=== PATIENT | male | born 1950 | race Caucasian/White ===

== ENCOUNTER 2022-07-15 | Inpatient (IN) | payer OTHER, MEDICARE ==
[~2022-07-15] VITALS: Ht 172.7 cm; Wt 78.0 kg
[2022-07-15] VITALS (22 sets, daily range): BP systolic 119–142; BP diastolic 66–96
[2022-07-15 01:44] LABS: BASOPHILS # (AUTO) 0.1 X10'3 (0-0.2); EOSINOPHILS # (AUTO) 0.2 X10'3 (0-0.9); MEAN CORPUSCULAR VOLUME 95.8 FL (78-98); MEAN PLATELET VOLUME 7.8 FL (7.4-10.4)
[2022-07-15 01:48] LABS: BASOPHILS % (AUTO) 0.9 % (0-1); EOSINOPHILS % (AUTO) 3.5 % (0-6); HEMATOCRIT 46.7 % (42.0-52.0); HEMOGLOBIN 16.3 g/dl (14.0-17.9); LYMPHOCYTES # (AUTO) 1.4 X10'3 (1.1-4.8); LYMPHOCYTES % (AUTO) 21.6 % (21-51); MEAN CORPUSCULAR HEMOGLOBIN 33.6 PG (27.0-31.0); MONOCYTES # (AUTO) 0.4 X10'3 (0-0.9); MONOCYTES % (AUTO) 6.4 % (2-12); NEUTROPHILS # (AUTO) 4.3 X10'3 (1.8-7.7); NEUTROPHILS % (AUTO) 67.6 % (42-75); PLATELET COUNT 188 X10'3 (140-440); RED BLOOD COUNT 4.87 X10'6 (4.70-6.10); RED CELL DISTRIBUTION WIDTH 12.7 % (11.5-14.5); WHITE BLOOD COUNT 6.4 X10'3 (4.5-11.0)
[2022-07-15 01:57] LABS: ALANINE AMINOTRANSFERASE 22 U/L (12-78); ALBUMIN 3.7 G/DL (3.4-5.0); ALBUMIN/GLOBULIN RATIO 1.1 (1.1-1.5); ALKALINE PHOSPHATASE 54 IU/L (46-116); ANION GAP 12 (8-16); ASPARTATE AMINO TRANSFERASE 19 U/L (10-37); BILIRUBIN,TOTAL 0.4 MG/DL (0.1-1.0); BLOOD UREA NITROGEN 17 MG/DL (7-18); BUN/CREATININE RATIO 16.2 (5.4-32.0); CALCIUM 9.3 MG/DL (8.5-10.1); CHLORIDE 104 MMOL/L (99-107); CREATININE 1.05 MG/DL (0.60-1.10); GLUCOSE 130 MG/DL (70-104); LIPASE 148 U/L (73-393); POTASSIUM 3.9 MMOL/L (3.5-5.1); SODIUM 142 MMOL/L (135-145); TOTAL CARBON DIOXIDE 25.8 MMOL/L (24-32); eGFR 69 ML/MIN
[2022-07-15 02:13] LABS: CLARITY,URINE SLIGHTLY CLOUDY (Clear); COLOR,URINE YELLOW (Yellow); GLUCOSE, URINE NEGATIVE (Neg); KETONES,URINE NEGATIVE (Neg); LEUKOCYTE ESTERASE ,URINE NEGATIVE (Neg); NITRITES, URINE NEGATIVE (Neg); OCCULT BLOOD,URINE TRACE-INTACT (Neg); PROTEIN,URINE NEGATIVE (Neg); UROBILINOGEN,URINE 0.2 E.U/dL (0.2-1.0)
[2022-07-15] MEDS ORDERED: fentaNYL/PF 50MCG/1 ML 2ML syringe IV ONE ×2 (02:15→04:00)
[2022-07-15] MEDS ORDERED: ketorolac trometh. 30mg/ml inj. IV ONE (02:15)
[2022-07-15] MEDS ORDERED: ondansetron/PF 4mg/2ml inj IV ONE ×2 (02:15→05:40)
[2022-07-15 02:18] LABS: BACTERIA,URINE FEW /HPF (Neg); SQUAMOUS EPITHELIAL CELL,UR FEW /LPF (FEW); UA COLLECTION TYPE VOIDED; WBC,URINE NONE SEEN /HPF (0-4)
--- NOTE | 2022-07-15 02:35 | NUR ---
ivp x3 given by rn
--- NOTE | 2022-07-15 04:32 | NUR ---
pain med given by rn
[2022-07-15] MEDS ORDERED: HYDR-3965 PO (05:27)
[2022-07-15] MEDS ORDERED: ONDA8TAB13 PO (05:27)
[2022-07-15] MEDS ORDERED: HYDROcodone/acetaminophen 5mg/325mg tablet PO ONE (05:40)
[2022-07-15] MEDS ORDERED: morphine 4 MG/ML inj SYRINge IV ONE (05:40)
--- NOTE | 2022-07-15 06:13 | NUR ---
po med given ivp given by rn
[2022-07-15] MEDS ORDERED: CefTRIAXone 2gm/D5W 50ml BAG 50 ML IV ONE (06:45)
[2022-07-15] MEDS ORDERED: normal saline 1000ML IV soln IVB ONE (06:45)
[2022-07-15] MEDS ORDERED: potassium Cl 20 mEq SR tablet PO PRN ×2 (07:15)
[2022-07-15] MEDS ORDERED: magnesium hydroxide 30ml (MOM) UD suspension PO PRN (07:15)
[2022-07-15] MEDS ORDERED: HYDROmorphone/PF 0.2 MG/ML SYRINGE IV PRN ×3 (07:15→14:50)
[2022-07-15] MEDS ORDERED: ondansetron 4mg rapidly disintigrating tab PO PRN (07:15)
[2022-07-15] MEDS ORDERED: ondansetron/PF 4mg/2ml inj IV PRN ×3 (07:15→14:50)
[2022-07-15] MEDS ORDERED: bisacodyl 10mg suppository rectal RC PRN (07:15)
[2022-07-15] MEDS ORDERED: potassium Cl 40MEQ/1/2NS 520ml 520 ML IV PRN (07:15)
[2022-07-15] MEDS ORDERED: mag hydrox/Alum hydrox/simeth 30ml oral suspension PO PRN (07:15)
[2022-07-15] MEDS ORDERED: magnesium Cl slow-release 64mg tablet PO PRN (07:15)
[2022-07-15] MEDS ORDERED: acetaminophen 325mg tablet PO PRN ×2 (07:15)
[2022-07-15] MEDS ORDERED: HYDROmorphone inj. 0.5 MG/0.5 ML DISP.SYRIN IV PRN (07:15)
[2022-07-15] MEDS ORDERED: magnesium 4gm in 100ml NS 100 ML IV PRN (07:15)
[2022-07-15] MEDS ORDERED: acetaminophen 650mg rectal suppository RC PRN (07:15)
--- NOTE | 2022-07-15 07:31 | NUR ---
report from randy calvert for continuation of care. pt is awake ao4. pt states pain has improved from 9 to 5/10. resp even unlabored. skinw/d/i pink. pt stated he drank 8 ounces of water with oral pain medication at 0600. pt verbalized understanding of npo status
[2022-07-15] MEDS: docusate sod 100mg capsule PO SCH ×2 (08:00→22:47)
[2022-07-15] MEDS: K and/or MAG REPLACEMENT MC SCH ×2 (08:00→20:00)
[2022-07-15 08:31] LABS: POTASSIUM 4.1 MMOL/L (3.5-5.1)
[2022-07-15] MEDS: morphine 4 MG/ML inj SYRINge IV PRN ×2 (09:43→12:17)
[2022-07-15] MEDS ORDERED: BUPIVAcaine 0.5% inj/PF 30 ML ONE (14:31)
[2022-07-15] MEDS ORDERED: ringers solution, lacted 1,000 ML IV SCH (14:50)
[2022-07-15] MEDS ORDERED: labetalol 20mg/4ml (5mg/ml) syringe IV PRN (14:50)
[2022-07-15] MEDS ORDERED: acetaminophen 1,000mg/100ml IV 100 ML IV PRN (14:50)
[2022-07-15] MEDS ORDERED: meperidine/PF 25mg/ml syringe IV PRN ×3 (14:50)
[2022-07-15] MEDS ORDERED: proCHLORperazine 10 MG/2 ml inj IV PRN (14:50)
[2022-07-15] MEDS ORDERED: hydrALAZINE 20mg/ml inj. IV PRN (14:50)
[2022-07-15] MEDS ORDERED: sevoflurane 250ml liquid IH ONE (15:12)
[2022-07-15] MEDS ORDERED: DOXA2TAB46 PO (15:17)
[2022-07-15] MEDS ORDERED: ZOLP10TA PO (15:17)
[2022-07-15] MEDS ORDERED: midazolam 1 mg/ML 2ml injection ONE (15:18)
[2022-07-15] MEDS ORDERED: fentaNYL /PF 50mcg/ml 5ml ampule ONE (15:19)
[2022-07-15] MEDS ORDERED: 0.9 % SODIUM CHLORIDE 10 ML VIAL ONE (15:50)
[2022-07-15] MEDS ORDERED: ePHEDrine 50MG/ML INJ. ONE (15:50)
[2022-07-15] MEDS ORDERED: dexamethasone sod phosphate 4mg/ml inj. ONE (15:50)
[2022-07-15] MEDS ORDERED: rocuronium 10mg/ml inj IV ONE (15:50)
[2022-07-15] MEDS ORDERED: ceFOXitin 1000 MG inj ONE ×2 (15:50)
[2022-07-15] MEDS ORDERED: LIDOcaine 2% (20mg/ml) 5ml vial ONE (15:50)
[2022-07-15] MEDS ORDERED: ondansetron/PF 4mg/2ml inj ONE (15:50)
[2022-07-15] MEDS ORDERED: propofol inj 20 ML IV ONE (15:50)
[2022-07-15] MEDS ORDERED: BUPIVAcaine 0.5% inj/PF 30 ml vial IJ ONE (15:55)
[2022-07-15] MEDS ORDERED: glycopyrrolate 0.2mg/ml inj ONE (16:29)
[2022-07-15] MEDS ORDERED: neostigmine methylsulfate 1 MG/ML 10ml vial ONE (16:29)
--- NOTE | 2022-07-15 16:41 | NUR ---
Received from OR via , accompanied by Anesthesiologist EDUARDO AND LESLIE THE OR NURSE. and report given by Anesthesiolgist. PT IS DROWSY YET ABLE TO FOLLOW VERBAL COMMANDS. DENIES PAIN OR DISCOMFORT. VSS WITH ST. 3 LAP SITES WITH BANDAIDS; CDI. Addendum: 07/15/22 at 1742 by Deena Marroquin RN Amended: Links added.
--- NOTE | 2022-07-15 18:45 | NUR ---
Patient in room [facility]. I have received report from KRISTIE Zavala and had the opportunity to ask questions and assume patient care.
--- NOTE | 2022-07-15 19:01 | NUR ---
Report called to receiving nurse. Transferred via BED WITH 2 BAGS OF Belongings PT WAS UP TO USE BATHROOM; WITH OUT RESULTS. IV TO RT AC INFUSING LR. PT EATING ICE CHIPS; SOOTHING SORE THROAT. DENIES PAIN OR DISCOMFORT. TRANSPORTED WITH TELE.. Special Issues communicated to receiving nurse. Addendum: 07/15/22 at 1916 by Deena Marroquin RN Amended: Links added.
[2022-07-15] MEDS ORDERED: temazepam 15mg capsule PO PRN (21:00)
--- NOTE | 2022-07-15 21:50 | NUR ---
Answered patient call light with patient c/o unable to urinate and having bladder pain. Patient attempted to stand and urinate with no success. Patient bladder scanned with 639 mls of urine found to be in the bladder. Patient with c/o increase in pain. Page to MD Chenu with request to straight cath the patient.
--- NOTE | 2022-07-15 22:40 | NUR ---
Attempt made to straight cath patient was unsuccessful as patient has enlarged prostate. Resistance was met when the catheter approached the prostate and would not advance. 2nd attempt was made with a coude but again was unsuccessful. Patient tolerated the straight cath attempts well. Call was placed and order was received if able to get a catheter in november leave. Pt was updated that we would be leaving the catheter in on the next attempt r/t it being difficult and some alfonso blood was visualized. Pt verbalized understanding and in agreement with plan for godoy catheter. 14french coude was used on the 3rd attempt with success. Patient tolerated well and stated he felt bladder relief once the catheter was placed. Primary care nurse updated on placement of catheter.
[2022-07-15] MEDS: doxazosin mesylate 2mg tablet PO SCH (22:46)
[2022-07-15] MEDS: zolpidem 5mg tablet PO PRN (22:50)
[2022-07-16] MEDS: normal saline 1000ml 1,000 ML IV SCH ×4 (00:08→13:26)
[2022-07-16 02:00] VITALS: BP 128/68
[2022-07-16 06:00] VITALS: BP 140/70
--- NOTE | 2022-07-16 06:25 | NUR ---
Problems reprioritized. Patient report given, questions answered & plan of care reviewed with KRISTIE Melo.
[2022-07-16 06:28] LABS: HEMOGLOBIN 13.4 g/dl (14.0-17.9); MEAN PLATELET VOLUME 8.4 FL (7.4-10.4); PLATELET COUNT 161 X10'3 (140-440); WHITE BLOOD COUNT 11.9 X10'3 (4.5-11.0)
[2022-07-16 06:32] LABS: BASOPHILS % (AUTO) 0.1 % (0-1); EOSINOPHILS % (AUTO) 0 % (0-6); HEMATOCRIT 38.4 % (42.0-52.0); LYMPHOCYTES # (AUTO) 0.6 X10'3 (1.1-4.8); LYMPHOCYTES % (AUTO) 4.7 % (21-51); MEAN CORPUSCULAR HEMOGLOBIN 33.5 PG (27.0-31.0); MEAN CORPUSCULAR HGB CONC 34.9 g/dL (33.0-36.5); MEAN CORPUSCULAR VOLUME 96.1 FL (78-98); MONOCYTES # (AUTO) 0.6 X10'3 (0-0.9); MONOCYTES % (AUTO) 5.3 % (2-12); NEUTROPHILS # (AUTO) 10.7 X10'3 (1.8-7.7); NEUTROPHILS % (AUTO) 89.9 % (42-75); RED BLOOD COUNT 3.99 X10'6 (4.70-6.10); RED CELL DISTRIBUTION WIDTH 12.3 % (11.5-14.5)
--- NOTE | 2022-07-16 07:16 | NUR ---
Patient in room [facility]. I have received report from Ayanna FLOWERS and had the opportunity to ask questions and assume patient care.
[2022-07-16 07:17] LABS: ALANINE AMINOTRANSFERASE 68 U/L (12-78); ALBUMIN 2.7 G/DL (3.4-5.0); ALKALINE PHOSPHATASE 38 IU/L (46-116); ANION GAP 8 (8-16); ASPARTATE AMINO TRANSFERASE 51 U/L (10-37); BILIRUBIN,TOTAL 0.7 MG/DL (0.1-1.0); BLOOD UREA NITROGEN 13 MG/DL (7-18); BUN/CREATININE RATIO 14.9 (5.4-32.0); CALCIUM 7.9 MG/DL (8.5-10.1); CHLORIDE 107 MMOL/L (99-107); CREATININE 0.87 MG/DL (0.60-1.10); GLUCOSE 134 MG/DL (70-104); MAGNESIUM 1.8 MG/DL (1.5-2.4); POTASSIUM 4.1 MMOL/L (3.5-5.1); SODIUM 139 MMOL/L (135-145); TOTAL CARBON DIOXIDE 24.2 MMOL/L (24-32); TOTAL PROTEIN 5.5 G/DL (6.4-8.2); eGFR 86 ML/MIN
[2022-07-16] MEDS: K and/or MAG REPLACEMENT MC SCH ×2 (08:00→20:00)
--- NOTE | 2022-07-16 08:24 | NUR ---
Per Dr Jose Elias allen to start patient on Regular diet, Continue home medications , Dr aware of patient H&H this am and that patient has dark blood in godoy. Ok to ROBERT Tele
[2022-07-16] MEDS: docusate sod 100mg capsule PO SCH ×2 (08:39→19:09)
[2022-07-16 10:00] VITALS: BP 133/70
[2022-07-16] MEDS ORDERED: tranexamic acid inj. 1,000 MG in normal saline 100ml IV soln 90 ML IV ONE (12:50)
[2022-07-16] MEDS: HYDROcodone/acetaminophen 5mg/325mg tablet PO PRN ×2 (14:24→19:09)
[2022-07-16] MEDS: oxybutynin 5mg tablet PO SCH ×2 (14:24→21:35)
[2022-07-16 18:00] VITALS: BP 129/68
--- NOTE | 2022-07-16 18:10 | NUR ---
Patient in room [facility]. I have received report from KRISTIE Melo and had the opportunity to ask questions and assume patient care.
--- NOTE | 2022-07-16 18:43 | NUR ---
Problems reprioritized. Patient report given, questions answered & plan of care reviewed with Ayanna FLOWERS.
[2022-07-16] MEDS: zolpidem 5mg tablet PO PRN (21:35)
[2022-07-16] MEDS: doxazosin mesylate 2mg tablet PO SCH (21:35)
[2022-07-16 22:00] VITALS: BP 127/79
[2022-07-17] MEDS: normal saline 1000ml 1,000 ML IV SCH ×2 (05:32→09:50)
[2022-07-17 06:00] VITALS: BP 104/59
--- NOTE | 2022-07-17 06:15 | NUR ---
Problems reprioritized. Patient report given, questions answered & plan of care reviewed with KRISTIE Melo.
[2022-07-17 06:42] LABS: BASOPHILS % (AUTO) 0.6 % (0-1); EOSINOPHILS # (AUTO) 0.1 X10'3 (0-0.9); EOSINOPHILS % (AUTO) 1.4 % (0-6); HEMATOCRIT 34.3 % (42.0-52.0); HEMOGLOBIN 12.1 g/dl (14.0-17.9); LYMPHOCYTES # (AUTO) 1.4 X10'3 (1.1-4.8); LYMPHOCYTES % (AUTO) 17.5 % (21-51); MEAN CORPUSCULAR HEMOGLOBIN 34.2 PG (27.0-31.0); MEAN CORPUSCULAR HGB CONC 35.2 g/dL (33.0-36.5); MEAN CORPUSCULAR VOLUME 97.1 FL (78-98); MEAN PLATELET VOLUME 8.3 FL (7.4-10.4); MONOCYTES # (AUTO) 0.6 X10'3 (0-0.9); MONOCYTES % (AUTO) 7.1 % (2-12); NEUTROPHILS # (AUTO) 5.9 X10'3 (1.8-7.7); NEUTROPHILS % (AUTO) 73.4 % (42-75); PLATELET COUNT 128 X10'3 (140-440); RED BLOOD COUNT 3.53 X10'6 (4.70-6.10); RED CELL DISTRIBUTION WIDTH 12.8 % (11.5-14.5)
[2022-07-17 07:06] LABS: GLUCOSE 90 MG/DL (70-104)
[2022-07-17 07:07] LABS: ALANINE AMINOTRANSFERASE 71 U/L (12-78); ALBUMIN 2.3 G/DL (3.4-5.0); ALBUMIN/GLOBULIN RATIO 0.9 (1.1-1.5); ALKALINE PHOSPHATASE 33 IU/L (46-116); ANION GAP 7 (8-16); ASPARTATE AMINO TRANSFERASE 40 U/L (10-37); BILIRUBIN,TOTAL 0.5 MG/DL (0.1-1.0); BLOOD UREA NITROGEN 16 MG/DL (7-18); CALCIUM 7.4 MG/DL (8.5-10.1); CHLORIDE 109 MMOL/L (99-107); CREATININE 0.89 MG/DL (0.60-1.10); MAGNESIUM 1.7 MG/DL (1.5-2.4); POTASSIUM 3.7 MMOL/L (3.5-5.1); SODIUM 142 MMOL/L (135-145); TOTAL CARBON DIOXIDE 26.1 MMOL/L (24-32); eGFR 84 ML/MIN
--- NOTE | 2022-07-17 07:07 | NUR ---
Patient in room [facility]. I have received report from Ayanna FLOWERS and had the opportunity to ask questions and assume patient care.
[2022-07-17] MEDS: docusate sod 100mg capsule PO SCH (07:56)
[2022-07-17] MEDS: oxybutynin 5mg tablet PO SCH ×2 (07:56→13:33)
[2022-07-17] MEDS: HYDROcodone/acetaminophen 10/325mg tab PO PRN ×2 (07:59→13:38)
[2022-07-17] MEDS: K and/or MAG REPLACEMENT MC SCH (08:00)
[2022-07-17 08:12] LABS: CANCER ANTIGEN 125 7.7 U/mL (Not Estab.); CARBOHYDRATE ANTIGEN 19-9 <2 U/mL (0-35); CARCINOEMBRYONIC ANTIGEN 0.9 ng/mL (0.0-4.7)
[2022-07-17 10:00] VITALS: BP 95/48
--- NOTE | 2022-07-17 13:54 | NUR ---
Contacted Lee Ann w/ case management regarding Dr New wanting patient to have home health. Also, advised Dr New that Lee Ann had contacted [facility] who will [facility] and get patient in [facility] with [facility] otherwise she will make referrals to Urologist in the community.
[2022-07-17] MEDS ORDERED: OXYB5TAB16 PO (14:42)
[2022-07-17] MEDS ORDERED: SULF1TAB49 PO (14:42)
[2022-07-17] MEDS ORDERED: HYDR-3965 PO (14:42)
--- NOTE | 2022-07-17 15:40 | NUR ---
Patient discharge instructions reviewed with patient and patient verbalized understanding. Patients Taylor bag was changed to a leg bag and instructions and demonstration were given to patient. Patient verbalized understanding. Patients IV dc'd cannula intact. Patient will be getting set up with home care by case management and they have [facility] to [facility] to [facility] by [facility]ist.
== END 2022-07-17 15:40 | disposition home health service (06) | DRG 418 ==
LOC: ER 00:02 → ED HOLD 07:18 → SUR 3N 19:10
PROVIDERS: ADMIT Family Medicine; ATTEND Family Medicine
PROC: 0T9B70Z Drainage of Bladder with Drainage Device, Via Natural or Artificial Opening (ICD-10-PCS; 2022-07-15)
PROC: 0FT44ZZ Resection of Gallbladder, Percutaneous Endoscopic Approach (ICD-10-PCS; principal; 2022-07-15 15:12)
DX: K80.00 Calculus of gallbladder with acute cholecystitis without obstruction (principal); R71.0 Precipitous drop in hematocrit; K82.8 Other specified diseases of gallbladder; G89.29 Other chronic pain; Z20.822 Contact with and (suspected) exposure to COVID-19; M54.9 Dorsalgia, unspecified; N40.1 Benign prostatic hyperplasia with lower urinary tract symptoms; R31.0 Gross hematuria; R33.8 Other retention of urine; N13.9 Obstructive and reflux uropathy, unspecified; Z88.5 Allergy status to narcotic agent
CPT/HCPCS: 36415; 71045; 76700; 80053; 81001; 82378; 83690; 83735; 84132; 85025; 85610; 86301; 86304; 87081; 87635; 93005; 99285; A4215; A4340; A4358; A4615; A4618; A5200; A7000; G0378; J0131; J0694; J0696; J1100; J1885; J2250; J2270; J2405; J2704; J2710; J3010; J3490; J7030; J7120; S0020

== ENCOUNTER 2023-11-07 08:32 | Emergency (ER) | payer OTHER, MEDICARE ==
[~2023-11-07] VITALS: Ht 172.7 cm; Wt 77.3 kg
[~2023-11-07 08:32] MED LIST: DOXA2TAB46 PO; OXYB5TAB21 PO; ZOLP10TA PO
[2023-11-07] MEDS ORDERED: morphine IR (immed. release) 30mg tablet PO STA (09:18)
[2023-11-07] MEDS: ondansetron 4mg rapidly disintigrating tab PO ONE (09:49)
[2023-11-07] MEDS: morphine sulfate IR 15MG tablet PO STA (09:51)
[2023-11-07 11:46] VITALS: BP 121/74; PULSE 94; RESP 18; O2SAT 95
[2023-11-07] MEDS: morphine 4 MG/ML inj SYRINge IV ONE (11:47)
[2023-11-07] MEDS ORDERED: MORP15TA PO (12:50)
== END 2023-11-07 13:20 | disposition home or self-care (01) ==
LOC: ER 08:34
DX: S49.91XA Unspecified injury of right shoulder and upper arm, initial encounter (principal); M54.2 Cervicalgia; M54.6 Pain in thoracic spine; Z88.5 Allergy status to narcotic agent; W19.XXXA Unspecified fall, initial encounter; Y93.89 Activity, other specified; Y92.814 Boat as the place of occurrence of the external cause; Y99.0 Civilian activity done for income or pay
CPT/HCPCS: 70450; 72125; 72128; 73030; 73200; 96374; 99285; J2270; A4565

== ENCOUNTER 2024-12-29 11:06 | Emergency (ER) | payer OTHER, MEDICARE ==
[~2024-12-29] VITALS: Ht 172.7 cm; Wt 85.6 kg
[~2024-12-29 11:06] MED LIST changes: +ZOLP-679 PO; -ZOLP10TA PO
[2024-12-29 11:18] VITALS: TEMP 99
[2024-12-29] MEDS: dexamethasone sod phosphate 10mg/ml inj IV STA (11:31)
[2024-12-29] MEDS: HYDROmorphone 1 mg/ml syringe IM ONE (11:44)
[2024-12-29] MEDS: ketorolac trometh 15mg/ml vial 15 MG/ML ML IV ONE (13:18)
[2024-12-29] MEDS: ondansetron/PF 4mg/2ml inj IV ONE (13:49)
[2024-12-29 14:52] LABS: BASOPHILS # (AUTO) 0.1 X10'3 (0-0.2); BASOPHILS % (AUTO) 0.6 % (0-1); EOSINOPHILS % (AUTO) 0 % (0-6); HEMATOCRIT 44.5 % (42.0-52.0); HEMOGLOBIN 15.4 g/dl (14.0-17.9); LYMPHOCYTES # (AUTO) 0.5 X10'3 (1.1-4.8); LYMPHOCYTES % (AUTO) 5.8 % (21-51); MEAN CORPUSCULAR HEMOGLOBIN 33.5 PG (27.0-31.0); MEAN CORPUSCULAR HGB CONC 34.6 g/dL (33.0-36.5); MEAN CORPUSCULAR VOLUME 96.7 FL (78-98); MONOCYTES # (AUTO) 0.1 X10'3 (0-0.9); MONOCYTES % (AUTO) 1.3 % (2-12); NEUTROPHILS # (AUTO) 8.3 X10'3 (1.8-7.7); NEUTROPHILS % (AUTO) 92.3 % (42-75); PLATELET COUNT 172 X10'3 (140-440); RED CELL DISTRIBUTION WIDTH 12.7 % (11.5-14.5)
--- NOTE | 2024-12-29 15:04 | RADIOLOGY REPORT ---
Indication: back pain Technique: CT axial images of the abdomen and pelvis are obtained with intravenous contrast. Coronal and sagittal reformats were obtained. Radiation Dose Information: CTDI volume is 19 mGy. Dose-length product is 1035 mGy*cm Comparison: None FINDINGS: Tiny bilateral pleural effusions. Adrenal glands, spleen, pancreas unremarkable in shape. Liver demonstrates 9 mm right hepatic lobe h ypodensity, incompletely characterized on noncontrast examination. Cholecystectomy. Right kidney demonstrates no hydronephrosis, nephrolithiasis. The left kidney demonstrates nonobstructing calculi measuring up to 9 mm. Left renal peripelvic cysts . No hydronephrosis. Stomach is moderately distended. Small bowel loops are normal in caliber. Colonic diverticular disease. Moderate volume stool in the colon. There are no secondary signs for a ppendicitis. Abdominal aortic atherosclerotic disease. Mesenteric haziness / stranding. Bladder distended. Massive prostatomegaly with the prostate measuring 7.4 cm transversely. No free pelvic fluid. No ingu inal lymphadenopathy. Right iliac sclerotic lesion measuring 3.3 cm. Moderate thoracolumbar degenerative disc disease. IMPRESSION: 1. Nonobstructing left renal calculi up to 9 mm. 2. Cholecystectomy. 3. Massive prostatomegaly. Correlate with PSA levels and urology consultation. 4. Right iliac sclerotic lesion. Differential considerations include cementoplasty/Postsurgical gleason es, bone island, bone infarct, osteoblastic metastases. Correlate with clinical history and risk fac tors. 5. Mesenteric haziness/ stranding which can be seen with sclerosing mesenteritis / mesenteric pannicu litis. 6. Right hepatic lobe hypodense lesion measuring 9 mm. Recommend multiphasic MRI abdomen with 7. And without contrast to characterize, which can be done in the nonemergent setting. 8. Other findings as described.
[2024-12-29 15:08] LABS: ALANINE AMINOTRANSFERASE 22 U/L (12-78); ALBUMIN 3.3 G/DL (3.4-5.0); ALBUMIN/GLOBULIN RATIO 0.9 (1.1-1.5); ALKALINE PHOSPHATASE 71 IU/L (46-116); ANION GAP 12 (8-16); ASPARTATE AMINO TRANSFERASE 17 U/L (10-37); BILIRUBIN,TOTAL 0.7 MG/DL (0.1-1.0); BLOOD UREA NITROGEN 16 MG/DL (7-18); BUN/CREATININE RATIO 14.4 (10.0-20.0); CHLORIDE 101 MMOL/L (99-107); CREATININE 1.11 MG/DL (0.60-1.10); GLUCOSE 126 MG/DL (70-104); POTASSIUM 4.5 MMOL/L (3.5-5.1); SODIUM 140 MMOL/L (135-145); TOTAL CARBON DIOXIDE 27.3 MMOL/L (24-32); eCRCL 55 ML/MIN; eGFR 64 ML/MIN
--- NOTE | 2024-12-29 15:23 | RADIOLOGY REPORT ---
INDICATION: back pain COMPARISON: 12/29/24 TECHNIQUE: 5 views of the lumbar spine were obtained. FINDINGS: The lumbar vertebral alignment is normal. Mild multilevel degenerative disc disease of the lumbosacral spine. No significant facet arthropathy is noted. Calcific density measures 10 mm which projects over the expected region of the left kidney. No acute fracture, vertebral compression deformity or aggressive osseous lesions. The paravertebral soft tissues are grossly unremarkable. IMPRESSION: No acute fracture. Left renal stone measuring 10 mm as seen on CT.
--- NOTE | 2024-12-29 17:53 | Physician Documentation ---
History of Present Illness ~ Chief Complaint: Back Pain Stated Complaint: BACK PAIN Time Seen by MD: 11:10 Mode of Arrival: EMS HPI Patient is here with low back pain. He has a history of chronic back pain he has had multiple surgeries. Pain has been severe over the last three days. He denies trauma no bowel or bladder dysfunction no numbness tingling or weakness no fever or chills abdominal pain UTI symptoms hematuria or any other symptoms. His pain is worse with any movement. He was brought to the hospital by an ambulance. Medication Reconciliation Allergies: Coded Allergies: morphine (Verified Adverse Reaction, Unknown, 11/07/23) vomiting Scheduled Doxazosin Mesylate (Doxazosin Mesylate), 1 TAB PO HS, (Reported) Oxybutynin Chloride (Oxybutynin Chloride), 5 MG PO TID Scheduled PRN Zolpidem Tartrate (Ambien), 1 TAB PO HSPRN PRN for sleep, (Reported) Past Medical History Past Medical History: No Pertinent History Past Surgical History: no surgical history Alcohol Use: None Drug Use: none Lives with: Alone Lives In: Home Physical Exam Physical Exam Vital Signs: Temperature: 99.0, Source: Oral, Heart Rate: 87, Respiratory Rate: 16, BP: 111/64, Pulse Oximetry: 92, Weight: 85.600 Oxygen Flow Rate: 0 Physical Exam General: Awake and Alert, no acute distress. HEENT: Conjunctiva pink, Sclera clear, Mucus Membranes moist. Neck: Supple without masses and tenderness. Resp: Unlabored. Lungs clear to auscultation bilaterally. Heart: Regular Rate and rhythm, normal S1 and S2 without murmur, rub or gallop. Abdomen: Soft and non tender no organomegaly Extremities: No cyanosis,clubbing or edema. Back: He is painful mainly over the paraspinal muscles in the right lower lumbar spine so she had the SI joint. Little bit of midline tenderness. No signs of trauma. Skin: Warm and Dry. Neuro: GCS 15; no focal deficits; normal strength sensation to light touch in the lower extremities specifically normal strength of the EHLs. Progress Results/Orders Results/Orders Orders - CRYS OTT MD Lumbar Spine Complte (12/29/24 ) Urinalysis, Cult If Indicated (12/29/24 13:59) Ct Abdomen Pelvis (12/29/24 14:17) Completed Orders - CRYS OTT MD Hydromorphone 1 Mg/Ml/Pf (Dilaudid Inj.) (12/29/24 11:10) Dexamethasone Inj (Decadron 10mg/Ml Inj) (12/29/24 11:23) Lumbar Spine Complte (12/29/24 ) Ketorolac Trometh 15mg/Ml Vial (Toradol (12/29/24 12:35) Ondansetron Inj. (Zofran 4mg/2ml Vial) (12/29/24 13:40) CMP (12/29/24 13:59) Cbc/Diff (12/29/24 13:59) Ct Abdomen Pelvis (12/29/24 14:17) Medications Received in ER Medications (Trade) Dose Ordered Sig/Maggi Route PRN Reason Start Time Stop Time Status Last Admin Dose Admin (Dilaudid inj.) 1 mg ONCE ONCE IM 12/29/24 11:10 12/29/24 11:12 DC 12/29/24 11:44 1 MG (Decadron 10mg/ ml inj) 10 mg ONCE STAT IV 12/29/24 11:23 12/29/24 11:28 DC 12/29/24 11:31 10 MG (Toradol injection) 15 mg ONCE ONCE IV 12/29/24 12:35 12/29/24 12:36 DC 12/29/24 13:18 15 MG (Zofran 4mg/2ml vial) 4 mg ONCE ONCE IV 12/29/24 13:40 12/29/24 13:41 DC 12/29/24 13:49 4 MG Vital Signs 12/29/24 12/29/24 12/29/24 12/29/24 11:18 11:27 11:44 11:44 Temp 99.0 Pulse 89 87 Resp 16 16 16 B/P (MAP) 125/65 111/64 (80) Pulse Ox 93 92 O2 Flow Rate 0 0 12/29/24 13:18 Resp 16 Laboratory Tests Test 12/29/24 14:27 White Blood Count 9.0 Red Blood Count 4.60 L Hemoglobin 15.4 Hematocrit 44.5 Mean Corpuscular Volume 96.7 Mean Corpuscular Hemoglobin 33.5 H Mean Corpuscular Hemoglobin Concent 34.6 Red Cell Distribution Width 12.7 Platelet Count 172 Mean Platelet Volume 8.0 Neutrophils (%) (Auto) 92.3 H Lymphocytes (%) (Auto) 5.8 L Monocytes (%) (Auto) 1.3 L Eosinophils (%) (Auto) 0 Basophils (%) (Auto) 0.6 Neutrophils # (Auto) 8.3 H Lymphocytes # (Auto) 0.5 L Monocytes # (Auto) 0.1 Eosinophils # (Auto) 0.0 Basophils # (Auto) 0.1 CBC Comment Sodium Level 140 Potassium Level 4.5 Chloride Level 101 Carbon Dioxide Level 27.3 Anion Gap 12 Blood Urea Nitrogen 16 Creatinine 1.11 H Estimated GFR/1.73 m2 64 BUN/Creatinine Ratio 14.4 Glucose Level 126 H Calcium Level 9.0 Total Bilirubin 0.7 Aspartate Amino Transf (AST/SGOT) 17 Alanine Aminotransferase (ALT/SGPT) 22 Alkaline Phosphatase 71 Total Protein 7.0 Albumin 3.3 L Globulin 3.7 Albumin/Globulin Ratio 0.9 L Chemistry Comments Medical Decision Making Findings Patient is here with severe low back pain. History of chronic low back pain but this is much worse. He was given a dose of dexamethasone morphine Dilaudid Toradol Tylenol by medics. No relief in his back pain he was clear that need to be admitted x-rays were negative. Labs are reassuring I ended up with a CT scan which shows a right iliac sclerotic lesion. I discussed it with our orthopedist Dr. Edwards who recommended the patient be transferred to a facility that has spine surgery. He does not have signs of acute cord syndrome. Departure Disposition: 30 STILL A PATIENT Impression: Primary Impression: Back pain Qualified Codes: M54.50 - Low back pain, unspecified Condition: Stable Referrals: NO PRIMARY CARE PROVIDER (PCP) Education Educated: Patient Educated regarding: diagnosis, treatment Signature Scribe Signature: no scribe Attestation: no scribe CRYS OTT MD Dec 29, 2024 17:53
[2024-12-29 18:02] LABS: BILIRUBIN,URINE NEGATIVE (Neg); CLARITY,URINE CLEAR (Clear); COLOR,URINE YELLOW (Yellow); GLUCOSE, URINE NEGATIVE (Neg); KETONES,URINE 15 mg/dl (Neg); LEUKOCYTE ESTERASE ,URINE NEGATIVE (Neg); NITRITES, URINE NEGATIVE (Neg); OCCULT BLOOD,URINE NEGATIVE (Neg); PROTEIN,URINE NEGATIVE (Neg); UROBILINOGEN,URINE 0.2 E.U/dL (0.2-1.0)
[2024-12-29 18:11] LABS: UA COLLECTION TYPE NON-SPECIFIED
[2024-12-29] MEDS: HYDROmorphone 1 mg/ml syringe IV ONE (20:01)
[2024-12-29 20:04] VITALS: BP 145/89; PULSE 101; O2SAT 97
[2024-12-29 21:55] VITALS: RESP 16
== END 2024-12-30 01:02 | disposition still patient (30) ==
LOC: ER 11:06
DX: M54.50 Low back pain, unspecified (principal); Z88.5 Allergy status to narcotic agent
CPT/HCPCS: 36415; 72110; 74176; 80053; 81003; 85025; 96372; 96374; 96375; 99285; J1100; J1171; J1885; J2405; A4615